=== PATIENT | male | born 1960 | race Caucasian/White ===

== ENCOUNTER 2020-08-15 09:16 | Emergency (ER) | payer OTHER ==
[2020-08-15] MEDS ORDERED: METHYLPREDNISOLONE 125 MG INJ ONE (11:17)
[2020-08-15] MEDS ORDERED: KETOROLAC 30 MG/ML INJ ONE (11:18)
--- NOTE | 2020-08-15 11:35 | RAD REPORT ---
EXAM DESCRIPTION: CTSpine Lumbar Wo Con08/15/2020 11:12 am CLINICAL HISTORY: Back injury with back pain and radiculopathy status post fall from a ladder 7 feet COMPARISON: None TECHNIQUE: Computed axial tomography lumbar spine was obtained with coronal and sagittal reconstruct ion. All CT scans are performed using dose optimization technique as appropriate and may include automated exposure control or mA/KV adjustment according to patient size. FINDINGS: No fracture is noted. No dislocation Disc space narrowing and osteophytes L2-3. Small left lateral disc herniation L2-3 Disc bulge, ligamentum flavum facet hypertrophy L4-5. Possible small central disc herniation. Thecal sac measures approximately 9 millimeters. IMPRESSION: Negative for a lumbar fracture. Small left lateral disc herniation L2-3 Spondylosis with possible small central disc herniation L4-5 resulting in mild central spinal stenosi s. If clinically indicated further evaluation with nonemergent MRI could be obtained
--- NOTE | 2020-08-15 13:05 | EDPHYS ---
Physician Documentation [facility] Name: Jostin Roque Age: 60 yrs Sex: Male : 1960 Arrival Date: 08/15/2020 Time: 09:19 Bed 16 Private MD: ED Physician Erasmo Sun HPI: 08/15 17:31 This 60 yrs old Male presents to ER via Ambulatory with complaints of Leg kdr Pain. 17:31 The patient presents with pain, that is acute. The complaints affect the left kdr hamstring, posterior aspect of left knee, left calf and left Achilles. Context: The problem was sustained at home, resulted from an unknown cause, the patient can fully bear weight, the patient is able to ambulate, with mild difficulty, Problem is a result from a previous injury: No. The patient denies any injury - has not had this pain before. Onset: The symptoms/episode began/occurred gradually, 2 week(s) ago. Modifying factors: The symptoms are alleviated by remaining still, the symptoms are aggravated by movement, straight leg raises. Associated signs and symptoms: The patient has no apparent associated signs or symptoms. Treatment prior to arrival includes: no previous treatment. Severity of symptoms: At their worst the symptoms were moderate, severe, incapacitating, just prior to arrival, in the emergency department the symptoms are unchanged. The patient has not experienced similar symptoms in the past. The patient has not recently seen a physician. Historical: - Allergies: 10:03 No Known Allergies; ca1 - Home Meds: 10:03 lamotrigine 25 mg oral tab [Active]; Wellbutrin SR 200 mg oral TbER 1 tab 2 times per ca1 day [Active]; Crestor 10 mg oral tab 1 tab once daily [Active]; tadalafil oral 5 mg oral 1 tab [Active]; - PMHx: 10:03 High Cholesterol; Bipolar disorder; ca1 - PSHx: 10:03 Tonsillectomy; ca1 - Immunization history:: Pneumococcal vaccine is up to date, Flu vaccine is not up to date. - Social history:: Smoking status: Patient/guardian denies using tobacco, the patient reports quitting approximately 31 years ago. ROS: 17:31 Constitutional: Negative for fever, chills, and weight loss, Eyes: Negative for injury, kdr pain, redness, and discharge, ENT: Negative for injury, pain, and discharge, Neck: Negative for injury, pain, and swelling, Cardiovascular: Negative for chest pain, palpitations, and edema, Respiratory: Negative for shortness of breath, cough, wheezing, and pleuritic chest pain, Abdomen/GI: Negative for abdominal pain, nausea, vomiting, diarrhea, and constipation, : Negative for injury, bleeding, discharge, and swelling, MS/Extremity: Negative for injury and deformity, Skin: Negative for injury, rash, and discoloration, Psych: Negative for depression, anxiety, suicide ideation, homicidal ideation, and hallucinations, Allergy/Immunology: Negative for hives, rash, and allergies, Endocrine: Negative for neck swelling, polydipsia, polyuria, polyphagia, and marked weight changes, Hematologic/Lymphatic: Negative for swollen nodes, abnormal bleeding, and unusual bruising. 17:31 Back: Positive for pain at rest, radiated pain, of the left low back. 17:31 Neuro: Positive for gait disturbance, left sciatic nerve distribution. Exam: 17:31 Constitutional: This is a well developed, well nourished patient who is awake, alert, kdr and in no acute distress. Head/Face: Normocephalic, atraumatic. Eyes: Pupils equal round and reactive to light, extra-ocular motions intact. Lids and lashes normal. Conjunctiva and sclera are non-icteric and not injected. Cornea within normal limits. Periorbital areas with no swelling, redness, or edema. Neck: Trachea midline, no thyromegaly or masses palpated, and no cervical lymphadenopathy. Supple, full range of motion without nuchal rigidity, or vertebral point tenderness. No Meningismus. Chest/axilla: Normal chest wall appearance and motion. Nontender with no deformity. No lesions are appreciated. Cardiovascular: Regular rate and rhythm with a normal S1 and S2. No gallops, murmurs, or rubs. Normal PMI, no JVD. No pulse deficits. Respiratory: Lungs have equal breath sounds bilaterally, clear to auscultation and percussion. No rales, rhonchi or wheezes noted. No increased work of breathing, no retractions or nasal flaring. Abdomen/GI: Soft, non-tender, with normal bowel sounds. No distension or tympany. No guarding or rebound. No evidence of tenderness throughout. Skin: Warm, dry with normal turgor. Normal color with no rashes, no lesions, and no evidence of cellulitis. MS/ Extremity: Pulses equal, no cyanosis. Neurovascular intact. Full, normal range of motion. Neuro: Awake and alert, GCS 15, oriented to person, place, time, and situation. Cranial nerves II-XII grossly intact. Motor strength 5/5 in all extremities. Sensory grossly intact. Cerebellar exam normal. Normal gait. Psych: Awake, alert, with orientation to person, place and time. Behavior, mood, and affect are within normal limits. 17:31 Back: pain, that is mild, that is moderate, of the left low back, Straight leg raises: right lower extremity does not illicit pain, left lower extremity illicits pain, at 30 degrees. Vital Signs: 09:59 BP 161 / 85; Pulse 68; Resp 16 S; Temp 97.5(TE); Pulse Ox 99% on R/A; Weight 86.18 kg ca1 (R); Height 6 ft. 2 in. (187.96 cm) (R); Pain 5/10; 13:28 BP 155 / 84; Pulse 67; Resp 16 S; Pulse Ox 99% on R/A; iw 09:59 Body Mass Index 24.39 (86.18 kg, 187.96 cm) ca1 MDM: 13:04 Patient medically screened. kdr 17:31 Data reviewed: vital signs, nurses notes, lab test result(s), radiologic studies. kdr Counseling: I had a detailed discussion with the patient and/or guardian regarding: the historical points, exam findings, and any diagnostic results supporting the discharge/admit diagnosis, lab results, radiology results, the need for outpatient follow up. 17:37 ED course: The patient was much improved at time of discharge. kdr 08/15 10:49 Order name: CT Lumbar Spine Wo Con; Complete Time: 12:35 kdr Administered Medications: 11:05 Drug: SOLU-Medrol 125 mg Route: IVP; Site: right forearm; jd3 12:00 Follow up: Response: No adverse reaction iw 11:05 Drug: TORadol - Ketorolac 15 mg Route: IVP; Site: right forearm; jd3 12:00 Follow up: Response: No adverse reaction iw 12:06 Drug: Robaxin 1 grams Route: IVPB; Infused Over: 1 hrs; Site: right forearm; jd3 13:00 Follow up: Response: No adverse reaction; IV Status: Completed infusion iw Disposition: 08/15/20 13:04 Discharged to Home. Impression: Low back pain, Sciatica, left side. - Condition is Stable. - Discharge Instructions: Musculoskeletal Pain, Back Pain, Adult, [id number], Sciatica, [id number]. - Prescriptions for Ibuprofen 800 mg Oral Tablet - take 1 tablet by ORAL route every 8 hours As needed take with food; 30 tablet. Robaxin 500 mg Oral Tablet - take 2 tablet by ORAL route every 6 hours As needed; 40 tablet. Tramadol 50 mg Oral Tablet - take 1 tablet by ORAL route every 8 hours as needed; 12 tablet. Medrol (Albert) 4 mg Oral Tablets, Dose Pack - take 1 tablet by ORAL route as directed - follow package instructions; 1 packet. - Medication Reconciliation Form, Thank You Letter form. - Follow up: Private Physician; When: 2 - 3 days; Reason: If symptoms return, Further diagnostic work-up, Recheck today's complaints, Continuance of care, Re-evaluation by your physician. - Problem is an acute exacerbation. - Symptoms have improved. Signatures: Dispatcher [employer] EDMS Erasmo Sun MD MD kdr Francine Weller RN RN iw Davies, Jonathon, RN RN jStarr Velasquez RN RN ca1 Corrections: (The following items were deleted from the chart) 13:29 13:04 08/15/2020 13:04 Discharged to Home. Impression: Low back pain; Sciatica, left iw side. Condition is Stable. Forms are Medication Reconciliation Form, Thank You Letter, Antibiotic Education, Prescription Opioid Use. Follow up: Private Physician; When: 2 - 3 days; Reason: If symptoms return, Further diagnostic work-up, Recheck today's complaints, Continuance of care, Re-evaluation by your physician. Problem is an acute exacerbation. Symptoms have improved. kdr
--- NOTE | 2020-08-15 13:05 | ER ---
Nurse's Notes [facility] Name: Jostin Roque Age: 60 yrs Sex: Male : 1960 Arrival Date: 08/15/2020 Time: 09:19 Bed 16 Private MD: Diagnosis: Low back pain;Sciatica, left side Presentation: 08/15 09:59 Chief complaint: Patient states: Pain on Lower left back since last week, radiated to L ca1 thigh yesterday. Bent down yesterday, pain went down to L calf, L ankle and L foot. Denies swelling. Denies HX of DVT. Coronavirus screen: Client denies travel out of the [place] in the last 14 days. At this time, the client does not indicate any symptoms associated with coronavirus-19. Ebola Screen: Patient negative for fever greater than or equal to 101.5 degrees Fahrenheit, and additional compatible Ebola Virus Disease symptoms Patient denies exposure to infectious person. Patient denies travel to an Ebola-affected area in the 21 days before illness onset. No symptoms or risks identified at this time. Initial Sepsis Screen: Does the patient meet any 2 criteria? No. Patient's initial sepsis screen is negative. Does the patient have a suspected source of infection? No. Patient's initial sepsis screen is negative. Risk Assessment: Do you want to hurt yourself or someone else? Patient reports no desire to harm self or others. Onset of symptoms was August 15, 2020. 09:59 Method Of Arrival: Ambulatory ca1 09:59 Acuity: CALEB 4 ca1 10:54 Acuity: CALEB 3 iw Historical: - Allergies: 10:03 No Known Allergies; ca1 - Home Meds: 10:03 lamotrigine 25 mg oral tab [Active]; Wellbutrin SR 200 mg oral TbER 1 tab 2 times per ca1 day [Active]; Crestor 10 mg oral tab 1 tab once daily [Active]; tadalafil oral 5 mg oral 1 tab [Active]; - PMHx: 10:03 High Cholesterol; Bipolar disorder; ca1 - PSHx: 10:03 Tonsillectomy; ca1 - Immunization history:: Pneumococcal vaccine is up to date, Flu vaccine is not up to date. - Social history:: Smoking status: Patient/guardian denies using tobacco, the patient reports quitting approximately 31 years ago. Screenin:28 Abuse screen: Denies threats or abuse. Nutritional screening: No deficits noted. jd3 Tuberculosis screening: No symptoms or risk factors identified. Fall Risk IV access (20 points). Ambulatory Aid- None/Bed Rest/Nurse Assist (0 pts). Gait- Normal/Bed Rest/Wheelchair (0 pts) Mental Status- Oriented to own ability (0 pts). Total Suero Fall Scale indicates No Risk (0-24 pts). Assessment: 11:27 General: Appears in no apparent distress. comfortable, Behavior is calm, cooperative, jd3 appropriate for age. Pain: Complains of pain in left hip Pain radiates to left leg Quality of pain is described as shooting. Neuro: Level of Consciousness is awake, alert, obeys commands, Oriented to person, place, time, situation. Cardiovascular: Denies chest pain, Capillary refill < 3 seconds Patient's skin is warm and dry. Respiratory: Airway is patent Respiratory effort is even, unlabored, Respiratory pattern is regular, symmetrical, Denies cough, shortness of breath. GI: No signs and/or symptoms were reported involving the gastrointestinal system. : No signs and/or symptoms were reported regarding the genitourinary system. EENT: No signs and/or symptoms were reported regarding the EENT system. Derm: Skin is intact, Skin is dry, Skin is normal, Skin temperature is warm. Musculoskeletal: Circulation, motion, and sensation intact. Range of motion: intact in all extremities, no swelling noted. 12:25 Reassessment: Patient appears in no apparent distress at this time. Patient and/or jd3 family updated on plan of care and expected duration. Pain level reassessed. Patient is alert, oriented x 3, equal unlabored respirations, skin warm/dry/pink. medication infusing through IV, pt reports no change at this time. 13:27 Reassessment: Patient appears in no apparent distress at this time. Patient and/or iw family updated on plan of care and expected duration. Pain level reassessed. Patient is alert, oriented x 3, equal unlabored respirations, skin warm/dry/pink. Patient states feeling better. Vital Signs: 09:59 BP 161 / 85; Pulse 68; Resp 16 S; Temp 97.5(TE); Pulse Ox 99% on R/A; Weight 86.18 kg ca1 (R); Height 6 ft. 2 in. (187.96 cm) (R); Pain 5/10; 13:28 BP 155 / 84; Pulse 67; Resp 16 S; Pulse Ox 99% on R/A; iw 09:59 Body Mass Index 24.39 (86.18 kg, 187.96 cm) ca1 ED Course: 09:19 Patient arrived in ED. as 10:01 Triage completed. ca1 10:03 Arm band placed on right wrist. ca1 10:17 rEasmo Sun MD is Attending Physician. kdr 10:50 Uday Mena, RN is Primary Nurse. jd3 10:58 Inserted saline lock: 20 gauge in right forearm, using aseptic technique. jd3 11:12 CT Lumbar Spine Wo Con In Process Unspecified. EDMS 11:29 Patient has correct armband on for positive identification. Placed in gown. Bed in low jd3 position. Call light in reach. Side rails up X 1. Pulse ox on. NIBP on. 13:27 No provider procedures requiring assistance completed. IV discontinued, intact, iw bleeding controlled, No redness/swelling at site. Pressure dressing applied. Administered Medications: 11:05 Drug: SOLU-Medrol 125 mg Route: IVP; Site: right forearm; jd3 12:00 Follow up: Response: No adverse reaction iw 11:05 Drug: TORadol - Ketorolac 15 mg Route: IVP; Site: right forearm; jd3 12:00 Follow up: Response: No adverse reaction iw 12:06 Drug: Robaxin 1 grams Route: IVPB; Infused Over: 1 hrs; Site: right forearm; jd3 13:00 Follow up: Response: No adverse reaction; IV Status: Completed infusion iw Outcome: 13:04 Discharge ordered by . kdr 13:27 Discharged to home ambulatory. iw 13:27 Condition: stable 13:27 Discharge instructions given to patient, Instructed on discharge instructions, follow up and referral plans. medication usage, Demonstrated understanding of instructions, follow-up care, medications, Prescriptions given X 4. 13:29 Patient left the ED. iw Signatures: Dispatcher [employer] EDMS Erasmo Sun MD MD kdr Luz Marina Proctor Irene, RN RN iw Uday Mena RN RN jd3 Starr Ramos RN RN ca1
[2020-08-15 13:39] VITALS: TEMP 97.5; O2SAT 99
[2020-08-15 13:41] VITALS: BP 155/84
== END 2020-08-15 13:29 | disposition home or self-care (01) ==
LOC: ER 09:16
DX: M54.32 Sciatica, left side (principal); E78.00 Pure hypercholesterolemia, unspecified; F31.9 Bipolar disorder, unspecified
CPT/HCPCS: 96365; 72131; 96375; 99284; J2930; J2800